=== PATIENT | male | born 1945 | race African-American/Black ===

== ENCOUNTER → 2020-01-26 | Outpatient (CLI) | payer MEDICARE ==
[~2020-01-26] MED LIST: AMLODIPINE BESYL5 MG PO; CELEBREX200 MG; DOXAZOSIN MESYLA4 MG PO; HYDROCODONE PO; IBUPROFEN600 MG PO; LISINOPRIL40 MG PO; NEURONTIN300 MG PO; NORCO 10-325 T1 EACH PO; PREVACID30 MG PO; PRILOSEC
--- NOTE | 2020-01-26 13:28 | Diagnostic Imaging Report ---
TECHNIQUE: Magnetic resonance imaging of the RIGHT SHOULDER was performed WITHOUT injected contrast. COMPARISON: None available. HISTORY: Right shoulder pain, fall FINDINGS: MUSCLES AND TENDONS: Rotator Cuff: Tendons: Posttraumatic tear of the rotator cuff with full-thickness nonretracted tear of the supraspinatus tendon (coronal image 13) and full-thickness retracted tear of the infraspinatus (coronal image 21) with the majority of the tendon retracted approximately 4.5 cm. Muscles: No focal muscle atrophy. Biceps Tendon: The long head of the biceps tendon is intact and within the intertubercular groove. GLENOHUMERAL JOINT: Glenoid Labrum: Superior labral fraying. Articular Cartilage: No focal defect. AC JOINT AND ACROMION: Moderate hypertrophic degenerative changes of the acromioclavicular joint. Subacromial spurring. BONE: No acute fracture. SOFT TISSUES: Otherwise, the soft tissues appear unremarkable. IMPRESSION: Posttraumatic rotator cuff tear with nonretracted full thickness tear of the supraspinatus and retracted full-thickness tear of the infraspinatus. Acromioclavicular arthrosis with subacromial spurring. Signed by: Dr. Reji Bauer M.D. on 01/26/2020 1:25 PM
== END ==
LOC: MRI 10:33
PROVIDERS: ATTEND Emergency Medicine
DX: S49.91XA Unspecified injury of right shoulder and upper arm, initial encounter (principal); W18.30XA Fall on same level, unspecified, initial encounter

== ENCOUNTER 2021-12-31 12:50 | Inpatient (IN) | payer MEDICARE ==
[~2021-12-31] VITALS: Ht 177.8 cm; Wt 90.7 kg
[2021-12-31] MEDS ORDERED: SODIUM CHLORIDE 0.9% 1000ML 1,000 ML IV STA (13:11)
[2021-12-31 13:27] LABS: BASOPHILS % 0.7 % (0.0-1.0); EOSINOPHILS # (AUTO) 0.1 (0.0-0.4); EOSINOPHILS % 1.9 % (0.0-6.0); HEMATOCRIT 42.9 % (38.2-49.6); LYMPHOCYTES # (AUTO) 1.9 (1.0-3.2); LYMPHOCYTES % 32.5 % (18.0-39.1); MEAN CORPUSCULAR HEMOGLOBIN 30.6 pg (28-32); MEAN CORPUSCULAR HGB CONC 32.6 g/dL (31-35); MEAN CORPUSCULAR VOLUME 93.9 fL (81-99); MONOCYTES # (AUTO) 0.5 (0.2-0.8); MONOCYTES % 7.7 % (4.4-11.3); NEUTROPHILS # (AUTO) 3.3 (2.1-6.9); NEUTROPHILS % 56.9 % (38.7-80.0); PLATELET COUNT 194 x10e3/uL (140-360); RED BLOOD COUNT 4.57 x10e6/uL (4.3-5.7)
[2021-12-31 13:47] LABS: INR 1.01; PROTHROMBIN TIME 14.2 seconds (11.9-14.5)
[2021-12-31 13:48] LABS: PARTIAL THROMBOPLASTIN TIME 30.3 seconds (23.8-35.5)
[2021-12-31 13:58] LABS: ALBUMIN/GLOBULIN RATIO 1.1 (0.8-2.0); ANION GAP 14.2 mmol/L (8-16); CALCIUM 9.2 mg/dL (8.4-10.2); CREATININE, SERUM 1.19 mg/dL (0.72-1.25); POTASSIUM 4.2 mmol/L (3.5-5.1)
[2021-12-31 14:04] LABS: COLOR,URINE BROWN (YELLOW)
[2021-12-31 14:05] LABS: CLARITY,URINE CLOUDY (CLEAR); LEUKOCYTE ESTERASE ,URINE LARGE (NEGATIVE); NITRITE,URINE NEGATIVE (NEGATIVE)
[2021-12-31 14:06] LABS: KETONES,URINE 2+ (NEGATIVE); PROTEIN,URINE DIPSTICK >=300 (NEGATIVE)
[2021-12-31 14:09] LABS: BACTERIA,URINE FEW /HPF; RBC,URINE >50 /HPF (0-5)
[2021-12-31 14:10] LABS: EPITHELIAL CELLS,URINE RARE /LPF; WBC,URINE (MAN) 0-5 /HPF (0-5)
[2021-12-31] MEDS ORDERED: SODIUM CHLORIDE 0.9% 250ML 250 ML ONE (14:31)
[2021-12-31] MEDS ORDERED: SODIUM CHLORIDE 0.9% 250ML 0 ML ONE (14:31)
[2021-12-31] MEDS ORDERED: IOPAMIDOL 370 MG/ML 100 ML INFUS..BTL INJ ONE (14:31)
[2021-12-31] MEDS ORDERED: Morphine 2mg Syringe 2 MG/ML SYR IV STA (16:04)
[2021-12-31] MEDS ORDERED: ONDANSETRON HCL INJ 2MG/ML 2ML 2 MG/ML VIAL IV STA (16:04)
[2021-12-31] MEDS ORDERED: LIDOCAINE JELLY 2% 10ML URO-JET TOP ONE (16:30)
[2021-12-31] MEDS ORDERED: ONDANSETRON HCL INJ 2MG/ML 2ML 2 MG/ML VIAL IV PRN (16:45)
[2021-12-31] MEDS ORDERED: Morphine 4mg INJECTION 4 MG/ML INJ IV PRN (16:45)
[2021-12-31] MEDS: SODIUM CHLORIDE 0.9% 1000ML 1,000 ML IV SCH (16:45)
[2021-12-31 19:52] VITALS: BP 168/90
[2021-12-31 20:01] VITALS: BP 168/90
[2021-12-31 20:04] VITALS: BP 168/90
[2021-12-31] MEDS ORDERED: SINEMET 25-1001 EACH PO (23:06)
[2021-12-31] MEDS ORDERED: HYDROCHLOROTH12.5 MG PO (23:06)
[2021-12-31] MEDS ORDERED: PAMELOR10 MG PO (23:06)
[2021-12-31] MEDS ORDERED: CYMBALTA30 MG PO (23:06)
[2021-12-31] MEDS ORDERED: NAMENDA10 MG PO (23:06)
[2021-12-31] MEDS: HYDROCODONE/APAP 7.5MG-325MG 1 EA TAB PO PRN (23:36)
[2021-12-31] MEDS: GABAPENTIN 300 MG CAP PO SCH (23:36)
[2021-12-31 23:38] VITALS: BP 166/86
[2022-01-01] VITALS (7 sets, daily range): BP systolic 159–179; BP diastolic 76–92
[2022-01-01] MEDS: SODIUM CHLORIDE 0.9% 1000ML 1,000 ML IV SCH ×3 (02:45→22:45)
[2022-01-01 05:21] LABS: BASOPHILS # (AUTO) 0.1 (0.0-0.1); BASOPHILS % 0.7 % (0.0-1.0); EOSINOPHILS # (AUTO) 0.2 (0.0-0.4); EOSINOPHILS % 2.6 % (0.0-6.0); HEMATOCRIT 39.4 % (38.2-49.6); HEMOGLOBIN 13.4 g/dL (14.0-18.0); LYMPHOCYTES # (AUTO) 2.5 (1.0-3.2); LYMPHOCYTES % 30.3 % (18.0-39.1); MEAN CORPUSCULAR HEMOGLOBIN 30.9 pg (28-32); MONOCYTES # (AUTO) 0.5 (0.2-0.8); MONOCYTES % 6.7 % (4.4-11.3); NEUTROPHILS # (AUTO) 4.8 (2.1-6.9); NEUTROPHILS % 59.3 % (38.7-80.0); PLATELET COUNT 187 x10e3/uL (140-360); RED BLOOD COUNT 4.33 x10e6/uL (4.3-5.7); RED CELL DISTRIBUTION WIDTH 13.2 % (11.7-14.4)
[2022-01-01 05:43] LABS: ALBUMIN 3.7 g/dL (3.5-5.0); ALBUMIN/GLOBULIN RATIO 1.1 (0.8-2.0); ANION GAP 13.3 mmol/L (8-16); CREATININE, SERUM 1.01 mg/dL (0.72-1.25); POTASSIUM 4.3 mmol/L (3.5-5.1)
[2022-01-01] MEDS: GABAPENTIN 300 MG CAP PO SCH ×3 (08:58→21:11)
[2022-01-01] MEDS ORDERED: AMLODIPINE BESYLATE 5 MG TAB PO NR (10:30)
[2022-01-01] MEDS: HYDROCODONE/APAP 7.5MG-325MG 1 EA TAB PO PRN ×2 (10:50→21:13)
[2022-01-01] MEDS ORDERED: HYDROCODONE/APAP 10MG-325MG TAB PO PRN (16:45)
[2022-01-01] MEDS ORDERED: NORTRIPTYLINE HCL 10 MG CAP PO SCH (21:00)
[2022-01-01] MEDS: CARBIDOPA/LEVODOPA 25/100 TAB PO SCH (21:11)
[2022-01-02] VITALS: BP 154/94
[2022-01-02 04:52] LABS: BASOPHILS % 0.5 % (0.0-1.0); EOSINOPHILS # (AUTO) 0.2 (0.0-0.4); EOSINOPHILS % 2.6 % (0.0-6.0); HEMATOCRIT 41.1 % (38.2-49.6); HEMOGLOBIN 13.3 g/dL (14.0-18.0); LYMPHOCYTES # (AUTO) 2.4 (1.0-3.2); LYMPHOCYTES % 31.9 % (18.0-39.1); MEAN CORPUSCULAR HEMOGLOBIN 30.4 pg (28-32); MEAN CORPUSCULAR HGB CONC 32.4 g/dL (31-35); MEAN CORPUSCULAR VOLUME 93.8 fL (81-99); MONOCYTES # (AUTO) 0.6 (0.2-0.8); MONOCYTES % 7.4 % (4.4-11.3); NEUTROPHILS # (AUTO) 4.2 (2.1-6.9); NEUTROPHILS % 57.3 % (38.7-80.0); PLATELET COUNT 199 x10e3/uL (140-360); RED BLOOD COUNT 4.38 x10e6/uL (4.3-5.7); RED CELL DISTRIBUTION WIDTH 13.1 % (11.7-14.4)
[2022-01-02 04:54] LABS: ANION GAP 13.9 mmol/L (8-16); CALCIUM 9.3 mg/dL (8.4-10.2); CREATININE, SERUM 1.02 mg/dL (0.72-1.25); POTASSIUM 3.9 mmol/L (3.5-5.1)
[2022-01-02] MEDS ORDERED: PANTOPRAZOLE SOD 40 MG TABEC PO SCH (07:30)
[2022-01-02] MEDS: SODIUM CHLORIDE 0.9% 1000ML 1,000 ML IV SCH ×2 (08:45→18:45)
[2022-01-02] MEDS: CARBIDOPA/LEVODOPA 25/100 TAB PO SCH ×2 (09:00→15:00)
[2022-01-02] MEDS: HYDROCHLOROTHIAZIDE 25 MG TAB PO SCH ×2 (09:00→13:02)
[2022-01-02] MEDS ORDERED: DULOXETINE HCL 30 MG DELAYED RELEASE PO SCH (09:00)
[2022-01-02] MEDS: GABAPENTIN 300 MG CAP PO SCH ×2 (09:00→15:00)
[2022-01-02] MEDS: HYDROCODONE/APAP 7.5MG-325MG 1 EA TAB PO PRN (09:19)
[2022-01-02 09:28] VITALS: BP 163/79
[2022-01-02 09:32] VITALS: BP 163/79
[2022-01-02 12:20] VITALS: BP 173/88
[2022-01-02 17:06] VITALS: BP 152/87
[2022-01-02 20:26] VITALS: BP 165/88
[2022-01-02] MEDS ORDERED: AMLODIPINE BESYLATE 5 MG TAB PO SCH (21:00)
== END 2022-01-02 20:41 | disposition home or self-care (01) | DRG 690 ==
LOC: ER 13:04 → ERHOLD 16:50 → MED/SURG 18:02
PROVIDERS: ADMIT Internal Medicine; ATTEND Internal Medicine
DX: N39.0 Urinary tract infection, site not specified (principal); N41.1 Chronic prostatitis; G20 Parkinson's disease; D64.9 Anemia, unspecified; N40.1 Benign prostatic hyperplasia with lower urinary tract symptoms; R39.14 Feeling of incomplete bladder emptying; I12.9 Hypertensive chronic kidney disease with stage 1 through stage 4 chronic kidney disease, or unspecified chronic kidney disease; N18.9 Chronic kidney disease, unspecified; G47.00 Insomnia, unspecified; G89.4 Chronic pain syndrome; R31.0 Gross hematuria; Z88.1 Allergy status to other antibiotic agents; Z88.2 Allergy status to sulfonamides; Z88.8 Allergy status to other drugs, medicaments and biological substances; Z87.440 Personal history of urinary (tract) infections; Z20.822 Contact with and (suspected) exposure to COVID-19
CPT/HCPCS: 0223U; 36415; 51700; 51703; 74178; 80048; 80053; 81001; 85025; 85610; 85730; 87086; 94799; 99284; J0696; J2270; J2405; J7030; J7050; Q9967

== ENCOUNTER 2022-02-15 06:47 | Inpatient (IN) | payer MEDICARE ==
[2022-02-13 13:55] LABS: BASOPHILS # (AUTO) 0.1 (0.0-0.1); BASOPHILS % 1.1 % (0.0-1.0); EOSINOPHILS # (AUTO) 0.1 (0.0-0.4); EOSINOPHILS % 2.2 % (0.0-6.0); HEMATOCRIT 46.1 % (38.2-49.6); HEMOGLOBIN 14.5 g/dL (14.0-18.0); LYMPHOCYTES # (AUTO) 2.1 (1.0-3.2); LYMPHOCYTES % 37.6 % (18.0-39.1); MEAN CORPUSCULAR HEMOGLOBIN 30.7 pg (28-32); MEAN CORPUSCULAR HGB CONC 31.5 g/dL (31-35); MEAN CORPUSCULAR VOLUME 97.5 fL (81-99); MONOCYTES # (AUTO) 0.5 (0.2-0.8); MONOCYTES % 8.8 % (4.4-11.3); NEUTROPHILS # (AUTO) 2.8 (2.1-6.9); NEUTROPHILS % 50.1 % (38.7-80.0); PLATELET COUNT 108 x10e3/uL (140-360); RED BLOOD COUNT 4.73 x10e6/uL (4.3-5.7); RED CELL DISTRIBUTION WIDTH 12.9 % (11.7-14.4)
[2022-02-13 14:15] LABS: ANION GAP 17.7 mmol/L (8-16); CALCIUM 9.6 mg/dL (8.4-10.2); CREATININE, SERUM 1.26 mg/dL (0.72-1.25); POTASSIUM 3.7 mmol/L (3.5-5.1)
[~2022-02-15] VITALS: Ht 177.8 cm; Wt 90.7 kg
[2022-02-15] VITALS (7 sets, daily range): BP systolic 128–145; BP diastolic 61–74
[~2022-02-15 06:47] MED LIST changes: +CYMBALTA30 MG PO; +GLUCOSAMIN-CHO1 EACH PO; +HYDROCHLOROTH12.5 MG PO; +MOVANTIK25 MG PO; +MULTI-VITAMIN1 EACH PO; +NAMENDA10 MG PO; +PAMELOR10 MG PO; +SINEMET 25-1001 EACH PO; +TYLENOL325 MG PO
[2022-02-15] MEDS ORDERED: SODIUM CHLORIDE 0.9% 1000ML 1,000 ML ONE (07:29)
[2022-02-15] MEDS ORDERED: PIPERACILLIN/TAZOBACTAM 3.375 GM VIAL ONE (07:29)
[2022-02-15] MEDS ORDERED: GENTAMICIN 80MG/NS 100 ML 200 ML IV ONE (07:29)
[2022-02-15] MEDS ORDERED: IOPAMIDOL 610MG/1ML 300 MG/ML VIAL IV ONE (09:15)
[2022-02-15] MEDS ORDERED: B&O 60MG R/S 60 MG SUPP PR PRN (11:15)
[2022-02-15] MEDS ORDERED: ONDANSETRON HCL INJ 2MG/ML 2ML 2 MG/ML VIAL IV PRN (11:15)
[2022-02-15] MEDS ORDERED: DIPHENHYDRAMINE HCL 25 MG CAP PO PRN (11:15)
[2022-02-15] MEDS ORDERED: PHENAZOPYRIDINE HCL 100 MG TAB PO PRN (11:15)
[2022-02-15 11:44] LABS: BASOPHILS # (AUTO) 0.1 (0.0-0.1); BASOPHILS % 0.8 % (0.0-1.0); EOSINOPHILS # (AUTO) 0.1 (0.0-0.4); EOSINOPHILS % 1.7 % (0.0-6.0); HEMATOCRIT 38.5 % (38.2-49.6); HEMOGLOBIN 12.5 g/dL (14.0-18.0); LYMPHOCYTES # (AUTO) 3.1 (1.0-3.2); LYMPHOCYTES % 48.4 % (18.0-39.1); MEAN CORPUSCULAR HEMOGLOBIN 31.1 pg (28-32); MEAN CORPUSCULAR HGB CONC 32.5 g/dL (31-35); MEAN CORPUSCULAR VOLUME 95.8 fL (81-99); MONOCYTES # (AUTO) 0.6 (0.2-0.8); MONOCYTES % 9.8 % (4.4-11.3); NEUTROPHILS # (AUTO) 2.5 (2.1-6.9); NEUTROPHILS % 39.1 % (38.7-80.0); PLATELET COUNT 167 x10e3/uL (140-360); RED BLOOD COUNT 4.02 x10e6/uL (4.3-5.7); RED CELL DISTRIBUTION WIDTH 13.1 % (11.7-14.4)
[2022-02-15 11:48] LABS: ANION GAP 11.7 mmol/L (8-16); CREATININE, SERUM 1.03 mg/dL (0.72-1.25); POTASSIUM 3.7 mmol/L (3.5-5.1)
[2022-02-15] MEDS: SODIUM CHLORIDE 0.9% 1000ML 1,000 ML IV SCH (17:19)
[2022-02-15] MEDS: DOCUSATE SODIUM 100 MG CAP PO SCH (17:23)
[2022-02-15] MEDS ORDERED: FENTANYL CITRATE/PF 100MCG/2 ML INJ ONE (17:52)
[2022-02-15] MEDS: AMLODIPINE BESYLATE 5 MG TAB PO SCH (21:11)
[2022-02-15] MEDS: CARBIDOPA/LEVODOPA 25/100 TAB PO SCH (21:11)
[2022-02-16] VITALS (10 sets, daily range): BP systolic 141–169; BP diastolic 64–83
[2022-02-16] MEDS: ACETAMINOPHEN/CODEINE 300MG - 30MG TAB PO PRN (00:20)
[2022-02-16] MEDS: SODIUM CHLORIDE 0.9% 1000ML 1,000 ML IV SCH ×2 (01:50→16:06)
[2022-02-16 05:27] LABS: BASOPHILS % 0.3 % (0.0-1.0); EOSINOPHILS # (AUTO) 0.2 (0.0-0.4); HEMATOCRIT 40.4 % (38.2-49.6); HEMOGLOBIN 12.9 g/dL (14.0-18.0); LYMPHOCYTES # (AUTO) 1.5 (1.0-3.2); LYMPHOCYTES % 19.3 % (18.0-39.1); MEAN CORPUSCULAR HEMOGLOBIN 30.7 pg (28-32); MEAN CORPUSCULAR HGB CONC 31.9 g/dL (31-35); MEAN CORPUSCULAR VOLUME 96.2 fL (81-99); MONOCYTES # (AUTO) 0.6 (0.2-0.8); MONOCYTES % 8.3 % (4.4-11.3); NEUTROPHILS # (AUTO) 5.2 (2.1-6.9); NEUTROPHILS % 69.8 % (38.7-80.0); PLATELET COUNT 193 x10e3/uL (140-360); RED CELL DISTRIBUTION WIDTH 12.9 % (11.7-14.4)
[2022-02-16 05:45] LABS: ANION GAP 10.9 mmol/L (8-16); CALCIUM 8.2 mg/dL (8.4-10.2); CREATININE, SERUM 0.99 mg/dL (0.72-1.25); POTASSIUM 3.9 mmol/L (3.5-5.1)
[2022-02-16] MEDS: DOCUSATE SODIUM 100 MG CAP PO SCH ×2 (08:30→16:09)
[2022-02-16] MEDS: PANTOPRAZOLE SOD 40 MG TABEC PO SCH (08:30)
[2022-02-16] MEDS: DULOXETINE HCL 30 MG DELAYED RELEASE PO SCH (08:30)
[2022-02-16] MEDS: CARBIDOPA/LEVODOPA 25/100 TAB PO SCH ×3 (08:30→20:28)
[2022-02-16] MEDS ORDERED: ONDANSETRON HCL INJ 2MG/ML 2ML 2 MG/ML VIAL IV ONE ×2 (14:41→14:43)
[2022-02-16] MEDS ORDERED: EPHEDRINE SULFATE INJ 50 MG/ML VIAL IV ONE (14:41)
[2022-02-16] MEDS ORDERED: GLYCOPYRROLATE INJ 0.2 MG/ML VIAL IV ONE ×2 (14:41→14:43)
[2022-02-16] MEDS ORDERED: PROPOFOL IV EMULSION 10 MG/ML 20 ML VIAL IV ONE ×2 (14:41→14:43)
[2022-02-16] MEDS ORDERED: POVIDONE IODINE 0.05% 0.05 % ML PO ONE ×2 (14:41→14:43)
[2022-02-16] MEDS ORDERED: NEOSTIGMINE 1 MG/ML 10ML VIAL IV ONE ×3 (14:41→14:43)
[2022-02-16] MEDS ORDERED: SEVOFLURANE INHAL SOLN 250 ML PEN BTL INH ONE ×2 (14:41→14:43)
[2022-02-16] MEDS ORDERED: LIDOCAINE HCL 2% LOCAL INJ 5 ML SDV VIAL INJ ONE ×2 (14:41→14:43)
[2022-02-16] MEDS ORDERED: ROCURONIUM BROMIDE 10 MG/ML 5ML VIAL IV ONE ×2 (14:41→14:43)
[2022-02-16] MEDS ORDERED: DEXAMETHASONE SOD PHOS INJ 4 MG/ML SDV IV ONE (14:43)
[2022-02-16] MEDS ORDERED: KETOROLAC TROMETHAMINE 30 MG/ML VIAL IV ONE (14:43)
[2022-02-16] MEDS: AMLODIPINE BESYLATE 5 MG TAB PO SCH (20:28)
[2022-02-16] MEDS: HYDROCHLOROTHIAZIDE 25 MG TAB PO SCH (20:29)
[2022-02-17] VITALS (8 sets, daily range): BP systolic 146–180; BP diastolic 73–93
[2022-02-17] MEDS: ACETAMINOPHEN/CODEINE 300MG - 30MG TAB PO PRN ×2 (02:20→17:06)
[2022-02-17 04:56] LABS: BASOPHILS % 0.2 % (0.0-1.0); EOSINOPHILS # (AUTO) 0.3 (0.0-0.4); EOSINOPHILS % 3.1 % (0.0-6.0); HEMATOCRIT 41.4 % (38.2-49.6); HEMOGLOBIN 13.2 g/dL (14.0-18.0); LYMPHOCYTES # (AUTO) 2.4 (1.0-3.2); LYMPHOCYTES % 29.6 % (18.0-39.1); MEAN CORPUSCULAR HEMOGLOBIN 30.6 pg (28-32); MEAN CORPUSCULAR HGB CONC 31.9 g/dL (31-35); MEAN CORPUSCULAR VOLUME 96.1 fL (81-99); MONOCYTES # (AUTO) 0.6 (0.2-0.8); MONOCYTES % 6.9 % (4.4-11.3); NEUTROPHILS # (AUTO) 4.9 (2.1-6.9); PLATELET COUNT 204 x10e3/uL (140-360); RED BLOOD COUNT 4.31 x10e6/uL (4.3-5.7); RED CELL DISTRIBUTION WIDTH 12.6 % (11.7-14.4)
[2022-02-17] MEDS: SODIUM CHLORIDE 0.9% 1000ML 1,000 ML IV SCH (05:00)
[2022-02-17 05:19] LABS: ANION GAP 14.6 mmol/L (8-16); CALCIUM 8.9 mg/dL (8.4-10.2); CREATININE, SERUM 1.01 mg/dL (0.72-1.25); POTASSIUM 3.6 mmol/L (3.5-5.1)
[2022-02-17] MEDS: PANTOPRAZOLE SOD 40 MG TABEC PO SCH (09:32)
[2022-02-17] MEDS: DOCUSATE SODIUM 100 MG CAP PO SCH ×2 (09:32→17:00)
[2022-02-17] MEDS: CARBIDOPA/LEVODOPA 25/100 TAB PO SCH ×3 (09:32→20:34)
[2022-02-17] MEDS: DULOXETINE HCL 30 MG DELAYED RELEASE PO SCH (09:32)
[2022-02-17] MEDS ORDERED: ONDANSETRON HCL 4 MG ORAL DISINTEGRATING TAB PO PRN (11:30)
[2022-02-17] MEDS: AMLODIPINE BESYLATE 5 MG TAB PO SCH (20:34)
[2022-02-17] MEDS: HYDROCHLOROTHIAZIDE 25 MG TAB PO SCH (20:35)
[2022-02-18] VITALS: BP 155/81
[2022-02-18 04:00] VITALS: BP 169/94
[2022-02-18 07:17] LABS: BASOPHILS % 0.5 % (0.0-1.0); EOSINOPHILS # (AUTO) 0.3 (0.0-0.4); EOSINOPHILS % 3.6 % (0.0-6.0); HEMATOCRIT 42.4 % (38.2-49.6); HEMOGLOBIN 13.7 g/dL (14.0-18.0); LYMPHOCYTES # (AUTO) 2.2 (1.0-3.2); LYMPHOCYTES % 28.4 % (18.0-39.1); MEAN CORPUSCULAR HEMOGLOBIN 30.6 pg (28-32); MEAN CORPUSCULAR HGB CONC 32.3 g/dL (31-35); MEAN CORPUSCULAR VOLUME 94.6 fL (81-99); MONOCYTES # (AUTO) 0.7 (0.2-0.8); MONOCYTES % 8.7 % (4.4-11.3); NEUTROPHILS # (AUTO) 4.6 (2.1-6.9); NEUTROPHILS % 58.7 % (38.7-80.0); PLATELET COUNT 207 x10e3/uL (140-360); RED BLOOD COUNT 4.48 x10e6/uL (4.3-5.7); RED CELL DISTRIBUTION WIDTH 12.5 % (11.7-14.4)
[2022-02-18 07:40] LABS: ANION GAP 16.5 mmol/L (8-16); CALCIUM 9.1 mg/dL (8.4-10.2); CREATININE, SERUM 0.99 mg/dL (0.72-1.25); POTASSIUM 3.5 mmol/L (3.5-5.1)
[2022-02-18 09:00] VITALS: BP 169/94
[2022-02-18 09:04] VITALS: BP 156/83
[2022-02-18] MEDS: DOCUSATE SODIUM 100 MG CAP PO SCH (09:33)
[2022-02-18] MEDS: CARBIDOPA/LEVODOPA 25/100 TAB PO SCH ×2 (09:33→14:41)
[2022-02-18] MEDS: PANTOPRAZOLE SOD 40 MG TABEC PO SCH (09:34)
[2022-02-18] MEDS: DULOXETINE HCL 30 MG DELAYED RELEASE PO SCH (09:34)
[2022-02-18] MEDS: ACETAMINOPHEN/CODEINE 300MG - 30MG TAB PO PRN (09:52)
[2022-02-18 12:47] VITALS: BP 161/97
[2022-02-18] MEDS ORDERED: GABAPENTIN 300 MG CAP PO SCH (15:00)
[2022-02-19] MEDS ORDERED: MULTIVITAMINS/MINERALS TAB PO SCH (09:00)
== END 2022-02-18 16:48 | disposition home or self-care (01) | DRG 713 ==
LOC: OR 06:47 → PACU V 11:06 → MED/SURG 12:19
PROVIDERS: ADMIT Internal Medicine; ATTEND Internal Medicine
PROC: 0T788ZZ Dilation of Bilateral Ureters, Via Natural or Artificial Opening Endoscopic (ICD-10-PCS; 2022-02-15)
PROC: BT141ZZ Fluoroscopy of Kidneys, Ureters and Bladder using Low Osmolar Contrast (ICD-10-PCS; 2022-02-15)
PROC: 0VB08ZZ Excision of Prostate, Via Natural or Artificial Opening Endoscopic (ICD-10-PCS; principal; 2022-02-15 09:38)
DX: N40.1 Benign prostatic hyperplasia with lower urinary tract symptoms (principal); N13.8 Other obstructive and reflux uropathy; R33.8 Other retention of urine; R39.14 Feeling of incomplete bladder emptying; G89.4 Chronic pain syndrome; Z20.822 Contact with and (suspected) exposure to COVID-19; Z88.1 Allergy status to other antibiotic agents; Z88.2 Allergy status to sulfonamides; Z88.8 Allergy status to other drugs, medicaments and biological substances; R31.0 Gross hematuria; I12.9 Hypertensive chronic kidney disease with stage 1 through stage 4 chronic kidney disease, or unspecified chronic kidney disease; N18.9 Chronic kidney disease, unspecified; G20 Parkinson's disease; E11.22 Type 2 diabetes mellitus with diabetic chronic kidney disease; Z87.440 Personal history of urinary (tract) infections
CPT/HCPCS: 0223U; 36415; 71046; 74420; 80048; 83735; 85025; 88304; 88305; 93005; 94799; 96361; 99251; C1758; J1100; J1580; J1885; J2001; J2405; J2543; J2710; J3010; J7030; Q0162

== ENCOUNTER 2022-02-21 09:31 | Observation (INO) | payer MEDICARE ==
[~2022-02-21] VITALS: Ht 177.8 cm; Wt 90.7 kg
[2022-02-21 10:38] LABS: BASOPHILS # (AUTO) 0.1 (0.0-0.1); BASOPHILS % 0.7 % (0.0-1.0); EOSINOPHILS # (AUTO) 0.2 (0.0-0.4); EOSINOPHILS % 1.7 % (0.0-6.0); HEMATOCRIT 40.9 % (38.2-49.6); HEMOGLOBIN 13.1 g/dL (14.0-18.0); LYMPHOCYTES # (AUTO) 1.4 (1.0-3.2); LYMPHOCYTES % 15.6 % (18.0-39.1); MEAN CORPUSCULAR HEMOGLOBIN 30.6 pg (28-32); MEAN CORPUSCULAR VOLUME 95.6 fL (81-99); MONOCYTES # (AUTO) 0.8 (0.2-0.8); MONOCYTES % 8.5 % (4.4-11.3); NEUTROPHILS # (AUTO) 6.7 (2.1-6.9); NEUTROPHILS % 73.3 % (38.7-80.0); PLATELET COUNT 192 x10e3/uL (140-360); RED BLOOD COUNT 4.28 x10e6/uL (4.3-5.7); RED CELL DISTRIBUTION WIDTH 12.9 % (11.7-14.4)
[2022-02-21 10:46] LABS: CLARITY,URINE CLOUDY (CLEAR); COLOR,URINE YELLOW (YELLOW)
[2022-02-21 10:48] LABS: KETONES,URINE NEGATIVE (NEGATIVE); LEUKOCYTE ESTERASE ,URINE SMALL (NEGATIVE); NITRITE,URINE NEGATIVE (NEGATIVE); PROTEIN,URINE DIPSTICK >=300 (NEGATIVE); URINE UROBILINOGEN 0.2 mg/dL (0.2 - 1)
[2022-02-21 10:59] LABS: ALBUMIN 3.6 g/dL (3.5-5.0); ANION GAP 15.7 mmol/L (8-16); CALCIUM 9.3 mg/dL (8.4-10.2); CREATININE, SERUM 2.64 mg/dL (0.72-1.25); POTASSIUM 3.7 mmol/L (3.5-5.1)
[2022-02-21 11:12] LABS: RBC,URINE >50 /HPF (0-5)
[2022-02-21 11:13] LABS: BACTERIA,URINE MODERATE /HPF; EPITHELIAL CELLS,URINE FEW /LPF; WBC,URINE (MAN) 21-50 /HPF (0-5)
[2022-02-21] MEDS ORDERED: ONDANSETRON HCL INJ 2MG/ML 2ML 2 MG/ML VIAL IV PRN (12:15)
[2022-02-21] MEDS ORDERED: SODIUM CHLORIDE 0.9% 1000ML 1,000 ML IV ONE (12:15)
[2022-02-21] MEDS ORDERED: SODIUM CHLORIDE 0.9% 1000ML 1,000 ML ONE (12:24)
[2022-02-21] MEDS: SODIUM CHLORIDE 0.9% 1000ML 1,000 ML IV SCH ×2 (13:12→17:22)
[2022-02-21 16:30] VITALS: BP 115/69
[2022-02-21 17:16] VITALS: BP 115/69
[2022-02-21 20:00] VITALS: BP 168/71
[2022-02-21 22:02] VITALS: BP 168/71
[2022-02-21] MEDS ORDERED: GABAPENTIN 300 MG CAP PO SCH (23:30)
[2022-02-22] VITALS: BP 185/85
[2022-02-22] MEDS: SODIUM CHLORIDE 0.9% 1000ML 1,000 ML IV SCH ×2 (01:54→11:32)
[2022-02-22 04:00] VITALS: BP 166/83
[2022-02-22 06:15] LABS: BASOPHILS # (AUTO) 0.1 (0.0-0.1); BASOPHILS % 0.8 % (0.0-1.0); EOSINOPHILS # (AUTO) 0.3 (0.0-0.4); EOSINOPHILS % 3.6 % (0.0-6.0); HEMATOCRIT 35.4 % (38.2-49.6); HEMOGLOBIN 11.3 g/dL (14.0-18.0); LYMPHOCYTES # (AUTO) 2.6 (1.0-3.2); LYMPHOCYTES % 33.4 % (18.0-39.1); MEAN CORPUSCULAR HEMOGLOBIN 30.7 pg (28-32); MEAN CORPUSCULAR HGB CONC 31.9 g/dL (31-35); MEAN CORPUSCULAR VOLUME 96.2 fL (81-99); MONOCYTES # (AUTO) 0.7 (0.2-0.8); MONOCYTES % 8.6 % (4.4-11.3); NEUTROPHILS # (AUTO) 4.1 (2.1-6.9); NEUTROPHILS % 53.3 % (38.7-80.0); PLATELET COUNT 206 x10e3/uL (140-360); RED BLOOD COUNT 3.68 x10e6/uL (4.3-5.7); RED CELL DISTRIBUTION WIDTH 12.6 % (11.7-14.4)
[2022-02-22 06:48] LABS: ANION GAP 13.2 mmol/L (8-16); CALCIUM 8.5 mg/dL (8.4-10.2); CREATININE, SERUM 1.03 mg/dL (0.72-1.25); POTASSIUM 3.2 mmol/L (3.5-5.1)
[2022-02-22 08:00] VITALS: BP 153/73
[2022-02-22 08:26] VITALS: BP 153/73
[2022-02-22 09:00] VITALS: BP 153/73
[2022-02-22] MEDS ORDERED: GABAPENTIN 300 MG CAP PO SCH (09:00)
[2022-02-22 12:30] VITALS: BP 174/82
[2022-02-22] MEDS ORDERED: POTASSIUM CHLORIDE 20 MEQ TAB CR PO ONE (13:30)
[2022-02-22] MEDS ORDERED: ONDANSETRON HCL 4 MG ORAL DISINTEGRATING TAB PO PRN (14:00)
[2022-02-22] MEDS ORDERED: CARBIDOPA/LEVODOPA 25/100 TAB PO SCH (15:00)
[2022-02-22] MEDS ORDERED: NON-FORMULARY MEDICATION (Hydrochlorothiazide 1 TAB) PO SCH (21:00)
[2022-02-22] MEDS ORDERED: AMLODIPINE BESYLATE 5 MG TAB PO SCH (21:00)
[2022-02-23] MEDS ORDERED: DULOXETINE HCL 30 MG DELAYED RELEASE PO SCH (09:00)
== END 2022-02-22 15:16 | disposition home or self-care (01) ==
LOC: ER 09:36 → ERHOLD 12:05 → MED/SURG3 16:00
PROVIDERS: ADMIT Internal Medicine; ATTEND Internal Medicine
DX: R33.9 Retention of urine, unspecified (principal); N17.9 Acute kidney failure, unspecified; Z88.1 Allergy status to other antibiotic agents; Z88.2 Allergy status to sulfonamides; Z88.8 Allergy status to other drugs, medicaments and biological substances; I10 Essential (primary) hypertension; G20 Parkinson's disease; G89.4 Chronic pain syndrome; E87.6 Hypokalemia; Z20.822 Contact with and (suspected) exposure to COVID-19
CPT/HCPCS: 36415 ×2; 51700; 80048; 80053; 81001; 85025 ×2; 99284; G0378 ×2; J7030 ×2; U0002

== ENCOUNTER 2022-03-12 16:27 | Emergency (ER) | payer MEDICARE ==
[~2022-03-12] VITALS: Ht 177.8 cm; Wt 90.7 kg
[2022-03-12 17:38] LABS: COLOR,URINE YELLOW (YELLOW)
[2022-03-12 17:39] LABS: CLARITY,URINE CLOUDY (CLEAR); KETONES,URINE 2+ (NEGATIVE); LEUKOCYTE ESTERASE ,URINE SMALL (NEGATIVE); NITRITE,URINE POSITIVE (NEGATIVE); PROTEIN,URINE DIPSTICK 2+ (NEGATIVE); URINE UROBILINOGEN 0.2 mg/dL (0.2 - 1)
[2022-03-12 17:51] LABS: BACTERIA,URINE MANY /HPF; EPITHELIAL CELLS,URINE FEW /LPF; WBC,URINE (MAN) >50 /HPF (0-5)
[2022-03-12] MEDS ORDERED: CEFTRIAXONE 1 GM VIAL IM ONE (18:00)
[2022-03-12] MEDS ORDERED: LIDOCAINE 1% 10 ML MULTIDOSE VIAL IJ ONE (18:15)
[2022-03-12] MEDS ORDERED: LEVOFLOXACIN750 MG PO (18:26)
[2022-03-12 18:32] VITALS: BP 127/85
== END 2022-03-12 18:34 | disposition home or self-care (01) ==
LOC: ER 16:33
DX: R33.9 Retention of urine, unspecified (principal); N39.0 Urinary tract infection, site not specified; R10.30 Lower abdominal pain, unspecified; I10 Essential (primary) hypertension
CPT/HCPCS: 51702; 81001; 87086; 87186; 99283; J0696; 51700

== ENCOUNTER → 2022-04-05 | Outpatient (CLI) | payer MEDICARE ==
[~2022-04-05] MED LIST changes: +LEVOFLOXACIN750 MG PO
== END ==
LOC: DX 09:39
PROVIDERS: ATTEND Emergency Medicine
DX: R13.10 Dysphagia, unspecified (principal)
CPT/HCPCS: 74230

== ENCOUNTER → 2022-09-08 | Outpatient (CLI) | payer MEDICARE | LOC: US 12:44 | PROVIDERS: ATTEND Urology | DX: N40.1 Benign prostatic hyperplasia with lower urinary tract symptoms (principal); R39.14 Feeling of incomplete bladder emptying; N39.0 Urinary tract infection, site not specified; R39.16 Straining to void; R80.9 Proteinuria, unspecified | CPT/HCPCS: 74018; 76770; 76857 ==

== ENCOUNTER → 2022-10-13 | Outpatient (CLI) | payer MEDICARE ==
[~2022-10-13] MED LIST changes: +IOPAMIDOL 370 MG/ML 100 ML INFUS..BTL INJ ONE
[2022-10-13 11:05] LABS: CREATININE, SERUM 1.12 mg/dL (0.72-1.25)
== END ==
LOC: CT 09:38
PROVIDERS: ATTEND Urology
DX: N28.1 Cyst of kidney, acquired (principal)
CPT/HCPCS: 36415; 74178; 82565; 84520; Q9967

== ENCOUNTER → 2022-10-13 | Outpatient (CLI) | payer MEDICARE ==
[~2022-10-13] MED LIST changes: -IOPAMIDOL 370 MG/ML 100 ML INFUS..BTL INJ ONE
== END ==
LOC: CT 09:36
PROVIDERS: ATTEND Emergency Medicine
DX: H53.2 Diplopia (principal)
CPT/HCPCS: 70450